=== PATIENT | female | born 1995 | race Two or more races ===

== ENCOUNTER 2022-11-07 19:00 | Emergency (ER) | payer SELFPAY ==
[2022-11-07 20:05] LABS: BLOOD UREA NITROGEN,BUN 8 mg/dL (7.0-18.0); CARBON DIOXIDE,CO2 25.5 mmol/L (21.0-32.0); CHLORIDE,CL 103 mmol/L (98-107); GLUCOSE RANDOM 143 mg/dL (74-106); POTASSIUM,K 3.8 mmol/L (3.5-5.1); SODIUM,NA 138 mmol/L (136-145)
[2022-11-07 20:07] LABS: ESTIMATED GFR 126 mL/min (>60)
== END 2022-11-07 20:27 | disposition left against medical advice (07) ==
LOC: MW.ED 19:00
DX: Z53.21 Procedure and treatment not carried out due to patient leaving prior to being seen by health care provider (principal)
CPT/HCPCS: 36415; 80053; 85025

== ENCOUNTER 2022-11-08 19:56 | Emergency (ER) | payer SELFPAY ==
[2022-11-08] MEDS ORDERED: Sodium Chloride 0.9% 2.5 ML Syringe FLUSH PRN (21:20)
[2022-11-08] MEDS ORDERED: Ketorolac 30 MG/ML SDV IVPUSH ONE (21:20)
[2022-11-08] MEDS ORDERED: Sodium Chloride 0.9% 10 ML Syringe FLUSH PRN (21:20)
[2022-11-08] MEDS ORDERED: Alum Hydro/Mag Hydro/Simeth XS 15 ML, Lidocaine 2% 5 ML PO ONE ×2 (21:21)
[2022-11-08] MEDS ORDERED: Morphine 4 MG/ML Syringe IVPUSH ONE (21:21)
[2022-11-08 22:39] LABS: CARBON DIOXIDE,CO2 26.2 mmol/L (21.0-32.0); POTASSIUM,K 3.7 mmol/L (3.5-5.1)
== END 2022-11-08 23:55 | disposition home or self-care (01) ==
LOC: MW.ED 19:56
DX: R10.13 Epigastric pain (principal); R11.0 Nausea
CPT/HCPCS: 36415; 76705; 80053; 81001; 83690; 84703; 85025; 96374; 96375; 99284; A9270; J1885; J2270; J3490

== ENCOUNTER 2022-11-12 01:25 | Emergency (ER) | payer SELFPAY ==
[2022-11-12] MEDS ORDERED: Sodium Chloride 0.9% 2.5 ML Syringe FLUSH PRN (01:49)
[2022-11-12] MEDS ORDERED: Sodium Chloride 0.9% 10 ML Syringe FLUSH PRN (01:49)
[2022-11-12] MEDS ORDERED: Alum Hydro/Mag Hydro/Simeth XS 15 ML, Lidocaine 2% 5 ML PO ONE ×2 (01:50)
[2022-11-12] MEDS ORDERED: Ketorolac 30 MG/ML SDV IVPUSH ONE (02:19)
[2022-11-12 02:50] LABS: CARBON DIOXIDE,CO2 26.6 mmol/L (21.0-32.0); POTASSIUM,K 4.1 mmol/L (3.5-5.1)
== END 2022-11-12 04:33 | disposition home or self-care (01) ==
LOC: MW.ED 01:25
DX: R10.13 Epigastric pain (principal)
CPT/HCPCS: 36415; 71045; 76705; 80053; 81025; 83690; 84484; 85025; 93005; 96374; 99284; A9270; J1885; J3490; 93010

== ENCOUNTER 2023-08-29 18:43 | Emergency (ER) | payer BC ==
[2023-08-29 19:39] LABS: APPEARANCE,URINE CLEAR; COLOR,URINE YELLOW; GLUCOSE,URINE NEGATIVE (NEGATIVE); KETONES,URINE 15 mg/dL (NEGATIVE); LEUKOCYTE ESTERASE,URINE NEGATIVE (NEGATIVE); NITRITE,URINE NEGATIVE (NEGATIVE); OCCULT BLOOD,URINE NEGATIVE (NEGATIVE); PH,URINE 5.5 (5.0-8.0); PROTEIN,URINE NEGATIVE (NEGATIVE)
[2023-08-29 19:41] LABS: BILIRUBIN,URINE SMALL (NEGATIVE)
[2023-08-29 20:32] LABS: BASOPHILS ABSOLUTE AUTO 0.05 K/uL (0.00-0.20); BASOPHILS PERCENT AUTO 0.5 % (0.0-1.0); EOSINOPHILS ABSOLUTE AUTO 0.02 K/uL (0.00-0.45); EOSINOPHILS PERCENT AUTO 0.2 % (0.0-6.0); HEMATOCRIT 38.8 % (37.0-47.0); HEMOGLOBIN 12.9 g/dL (12.0-16.0); IMMATURE GRAN ABSOLUTE AUTO 0.03 K/uL (0.00-0.05); IMMATURE GRAN PERCENT AUTO 0.3 % (0.0-0.4); LYMPHOCYTES ABSOLUTE AUTO 1.96 K/uL (1.00-4.80); LYMPHOCYTES PERCENT AUTO 21.4 % (24.0-44.0); MEAN CORPUSCULAR HEMOGLOBIN 28.2 pg (28.0-32.0); MEAN CORPUSCULAR HGB CONC 33.2 g/dL (32.0-36.0); MEAN CORPUSCULAR VOLUME 84.9 fL (83.0-99.0); MEAN PLATELET VOLUME 9.9 fL (9.4-12.3); MONOCYTES ABSOLUTE AUTO 0.38 K/uL (0.00-0.80); MONOCYTES PERCENT AUTO 4.2 % (0.0-8.0); NEUTROPHILS ABSOLUTE AUTO 6.71 K/uL (1.80-7.70); NEUTROPHILS PERCENT AUTO 73.4 % (41.0-71.0); PLATELET COUNT,PLT 305 K/uL (150-400); RED BLOOD CELL COUNT 4.57 M/uL (4.10-5.30); WHITE BLOOD CELL COUNT,WBC 9.15 K/uL (3.9-11.3)
[2023-08-29 21:00] LABS: ALANINE AMINOTRANSFERASE,ALT 39 IU/L (14-63); ALBUMIN 4.1 g/dL (3.4-5.0); ALKALINE PHOSPHATASE 74 U/L (46-116); ASPARTATE AMNIOTRANSFERASE,AST 23 IU/L (15-37); BILIRUBIN TOTAL 0.5 mg/dL (0.2-1.0); BLOOD UREA NITROGEN,BUN 9 mg/dL (7.0-18.0); CALCIUM 9.5 mg/dL (8.5-10.1); CARBON DIOXIDE,CO2 25.7 mmol/L (21.0-32.0); CHLORIDE,CL 107 mmol/L (98-107); CREATININE 0.8 mg/dL (0.6-1.0); GLUCOSE RANDOM 111 mg/dL (74-106); POTASSIUM,K 3.8 mmol/L (3.5-5.1); PROTEIN TOTAL,TP 8.2 g/dL (6.4-8.2); SODIUM,NA 143 mmol/L (136-145)
[2023-08-29 21:02] LABS: ESTIMATED GFR 103 mL/min (>60); HCG QUANTITATIVE < 1.0 mIU/mL
[2023-08-29] MEDS ORDERED: Ibuprofen 600 MG Tab PO ONE (21:21)
== END 2023-08-29 21:32 | disposition home or self-care (01) ==
LOC: MW.ED 18:43
DX: N93.9 Abnormal uterine and vaginal bleeding, unspecified (principal)
CPT/HCPCS: 36415; 80053; 81003; 81025; 84702; 85025; 86900; 86901; 99284; A9270; 99282

== ENCOUNTER 2023-10-06 23:38 | Emergency (ER) | payer SELFPAY ==
[2023-10-07] MEDS: LORazepam 1 MG Tab PO ONE (00:15)
== END 2023-10-07 00:40 | disposition home or self-care (01) ==
LOC: MW.ED 23:38
DX: F41.9 Anxiety disorder, unspecified (principal)
CPT/HCPCS: 99283; A9270